=== PATIENT | female | born 1995 | race American Indian/Alaskan Native ===

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

== ENCOUNTER 2017-01-30 10:09 | Emergency (ER) | payer SELFPAY ==
--- NOTE | 2017-01-30 10:54 | OBDCSUM ---
Datetime: 01/30/2017 10:52 Discharged to, Provider: Home Follow up at, Provider: 3days Follow up in weeks, Provider: clinic Discharge Comment, Provider: dc home ptl given po hyration f/u in clinic in 2-3 days Discharge Diagnosis Prov Other: 26 weeks dec fm nst
--- NOTE | 2017-01-30 10:54 | OBHP ---
Datetime: 01/30/2017 10:49 IP Adm Impression: , intrauterine IP Admit Plan: Discharge home Admit Comment, IP Provider: at 26weeks came with c/o decreased fm from 2 days,no ctxs, vb, lof. pt feels the baby moving now. obhx primi pmh den med pnv all nkda psh den soch den fhr 130 mod [place] a/p at 26weeks with dec fm dc home ptl given po hyration f/u in clinic in 2-3 days Pelvic Type - PN: Adequate Extremities - PN: Normal Abdomen - PN: Normal Back - PN: Normal Breast - PN: Normal Lungs - PN: Normal Heart - PN: Normal Thyroid - PN: Normal Neurologic - PN: Normal HEENT - PN: Normal General - PN: Normal FHR - Baseline A Provider: 140 Contraction Comments Provider: none Comments, ACOG Physical Exam: gravid,non tender EGA AdmitDate IP: 26.0 Vital Signs Provider: Reviewed; Within Normal Limits IP Chief Complaint: Decreased movement NICHD Variability Prov Fetus A: Moderate 6-25bpm NICHD Accel Fetus A IP Provider: 10X10 FHR Category Provider Fetus A: Category I Genitourinary Exam: Normal DTRs - PN: Normal
[2017-01-30 16:17] VITALS: BP 101/58; PULSE 70; RESP 20; TEMP 97.2; O2SAT 100
== END 2017-01-30 11:16 | disposition home or self-care (01) ==
LOC: C.EROB 10:09
DX: O36.8120 Decreased fetal movements, second trimester, not applicable or unspecified (principal); Z3A.26 26 weeks gestation of pregnancy